=== PATIENT | male | born 1965 | race Caucasian/White ===

== ENCOUNTER 2019-05-24 09:40 | Emergency (ER) | payer SELFPAY ==
[2019-05-24] MEDS: LIDOCAINE 1% (MPF) 5 ML VIAL INFIL (10:37)
== END 2019-05-24 12:01 | disposition home or self-care (01) ==
LOC: FTE 09:40
DX: L02.11 Cutaneous abscess of neck (principal); I10 Essential (primary) hypertension; F17.210 Nicotine dependence, cigarettes, uncomplicated
CPT/HCPCS: 10060; 99283-25